=== PATIENT | male | born 2000 | race Caucasian/White ===

== ENCOUNTER 2023-08-18 16:57 | Emergency (ER) | payer OTHER ==
[~2023-08-18] VITALS: Ht 172.7 cm; Wt 90.9 kg
[2023-08-18 17:07] VITALS: TEMP 98.3
[2023-08-18] MEDS: IBUPROFEN 800 MG TABLET PO ONE (17:31)
[2023-08-18 19:46] VITALS: BP 155/84; PULSE 68; RESP 14
== END 2023-08-18 19:48 | disposition home or self-care (01) ==
LOC: EMS 16:58
DX: S90.31XA Contusion of right foot, initial encounter (principal); X58.XXXA Exposure to other specified factors, initial encounter; Y93.89 Activity, other specified; Y92.89 Other specified places as the place of occurrence of the external cause; Y99.8 Other external cause status
CPT/HCPCS: 99283